=== PATIENT | male | born 1980 | race Two or more races ===

== ENCOUNTER 2019-09-06 09:53 | Day surgery (SDC) | payer OTHER ==
[2019-09-05 14:03] VITALS: BMI 30.8
--- NOTE | 2019-09-06 07:33 | OP ---
Operative Note - Note: Operative Date: 09/06/19 Pre-Operative Diagnosis: Right patella fracture Operation: Right patella ORIF Implants: Arthrex cannulated screws x2 Post-Operative Diagnosis: Same as Pre-op Surgeon: Ty Sousa Rack Pusher: Kimberly Luis Anesthesia: General Operative Report Dictated: Yes
[2019-09-06] MEDS ORDERED: INSULIN (NOVOLOG) ASPART 100 UNITS/ML 10ML VIAL ONE (10:33)
[2019-09-06] MEDS ORDERED: INSULIN (NOVOLOG) ASPART 100 UNITS/ML 10ML VIAL SQ ONE ×2 (10:35)
[2019-09-06] MEDS ORDERED: BUPIVACAINE HCL/PF 0.5% (5 MG/ML) 30 ML VIAL IJ ONE (11:27)
[2019-09-06] MEDS ORDERED: MIDAZOLAM HCL 2 MG/2 ML SINGLE DOSE VIAL ONE (11:27)
[2019-09-06] MEDS ORDERED: BUPIVACAINE HCL/PF 0.5% (5MG/ML) 10 ML VIAL ONE (11:32)
[2019-09-06] MEDS ORDERED: PROPOFOL 20 ML ONE (11:55)
[2019-09-06] MEDS ORDERED: LIDOCAINE HCL/PF 2% SDV 5ML VIAL ONE (12:10)
[2019-09-06] MEDS ORDERED: ONDANSETRON 4 MG/2 ML VIAL ONE (12:10)
[2019-09-06] MEDS ORDERED: ceFAZolin SODIUM 1 GM VIAL ONE (12:10)
[2019-09-06] MEDS ORDERED: LIDOCAINE HCL 2% JELLY (5 ML/TUBE) ONE (12:10)
[2019-09-06] MEDS ORDERED: DEXAMETHASONE SOD PHOSPHATE 4 MG/1 ML VIAL ONE (12:10)
[2019-09-06] MEDS ORDERED: ONDANSETRON 4 MG/2 ML VIAL IVPUSH PRN (14:34)
[2019-09-06] MEDS ORDERED: PROMETHAZINE HCL 25 MG/1 ML VIAL IVPUSH PRN (14:34)
[2019-09-06] MEDS ORDERED: oxyCODONE HCL 5 MG TABLET PO PRN ×2 (14:34)
[2019-09-06 15:31] VITALS: TEMP 96
[2019-09-06 16:18] VITALS: BP 128/75; PULSE 78
--- NOTE | 2019-09-16 19:02 | OP ---
DATE OF OPERATION: 09/06/2019 PREOPERATIVE DIAGNOSIS: Right transverse patellar fracture. POSTOPERATIVE DIAGNOSIS: Right transverse patellar fracture. PROCEDURE: Right patella open reduction and internal fixation. SURGEON: Ty Hyde MD GEOTHERMAL TECHNICIAN: Kimberly Luis, physician's prosthetic assistant, whose skillful assistance was necessary for the safe and timely performance of this procedure. Ms. Luis was able to provide limb positioning, retraction, assist in fracture reduction, as well as the insertion of fracture fixation hardware. IMPLANTS: Arthrex cannulated screws x2. COMPLICATIONS: None. INDICATIONS: This is a pleasant, 39-year-old gentleman who suffered a transverse patella fracture after a fall. The fracture was displaced and therefore indicated for operative repair. Prior to surgery, the risks, benefits, and alternatives to surgery were discussed with the patient in detail. Alternatives include bracing with either nonunion or malunion. Surgery was highly recommended. Surgical risks were reviewed in detail including bleeding, infection, neurovascular injury, need for further surgery, postoperative pain and stiffness, nonunion, malunion, postoperative pain or stiffness, post-traumatic arthrosis. We reviewed medical risks such as heart attack, stroke, DVT, PE, and . I addressed the use of perioperative antibiotic and DVT prophylaxis. I addressed all the patient's questions and concerns. He voiced understanding and elected to proceed. DESCRIPTION: The patient was brought to the operating room, where he was placed supine on the operating room table, careful to pad all the bony prominences. The patient was then provided anesthesia by Dr. Collado. The right lower extremity was then prepped and draped in the usual sterile fashion. A preoperative dose of antibiotics was given and the usual timeout procedure was performed. The incision was now planned out in the midline over the patella. This was then carried down through skin to subcutaneous tissue. The fracture was now identified, demonstrating a moderate amount of comminution. Hematoma was evacuated. The rongeur and curette were used to debride the bone of any soft callus. A tear of the retinaculum was noted extensively, extending both medially and laterally. After debriding the bony surfaces, the retinaculum was bluntly dissected out in order to provide for a satisfactory repair. Multiple number 1 Vicryl sutures were passed, but not tied, to allow for mobilization of the patella during the bony portion of the procedure. Attention was then turned to the patella. The fracture was then reduced utilizing pointed reduction forceps. Fracture reduction was verified fluoroscopically. At this point, two K wires were passed in parallel down the midportion of the patella to fix the fracture. After both K wires were placed satisfactorily, the fracture was again inspected visually and fluoroscopically, and both fracture reduction and wire placement were satisfactory. The wires were then overdrilled, measured, and two 4.5-mm Arthrex cannulated screws were inserted. Screw placement was satisfactory, again verified visually and fluoroscopically. A FiberTape suture was now passed through one screw and through the other screw in [id number] fashion, making small incisions in the quadriceps tendon to retrieve the free ends. The suture was then tied, forming a tension-band type construct. Final fluoroscopy at this point was used to confirm that fracture reduction and hardware placement were stable, and both were satisfactory. At this point, the wound was copiously irrigated. The retinacular sutures were tied off. An additional retinacular repair was performed with number 1 Vicryl. The deep subcutaneous tissue was then approximated using 0 Vicryl. The subcutaneous tissue was approximated using 2-0 Vicryl. The skin was closed using 3-0 nylon. Sterile dressings were placed. The patient was transferred to the recovery room in stable condition. TY HYDE M.D. [id number]
== END 2019-09-06 16:10 | disposition home or self-care (01) ==
LOC: FASU 09:53
PROVIDERS: ATTEND Orthopaedic Surgery Sports Medicine
PROC: 0QSD04Z Reposition Right Patella with Internal Fixation Device, Open Approach (ICD-10-PCS; 2019-09-06)
PROC: 0QBD0ZZ Excision of Right Patella, Open Approach (ICD-10-PCS; principal; 2019-09-06 11:30)
DX: S82.031A Displaced transverse fracture of right patella, initial encounter for closed fracture (principal); W18.30XA Fall on same level, unspecified, initial encounter; Y93.9 Activity, unspecified; Y92.9 Unspecified place or not applicable
CPT/HCPCS: 73560-TC-RT-FY; 82962; 94760